=== PATIENT | male | born 1945 | race Asian ===

== ENCOUNTER 2018-08-18 20:24 | Emergency (ER) | payer MEDICARE ==
[~2018-08-18] VITALS: Ht 182.9 cm; Wt 79.5 kg
[~2018-08-18 20:24] MED LIST: BIMA2.5D4 OP; [UNRECOGNIZED DRUG - OTHER]
[2018-08-18 20:28] VITALS: Ht 182.9 cm; Wt 79.5 kg
[2018-08-18] MEDS ORDERED: LATA2.5D2 BOTH EYES (20:59)
[2018-08-18] MEDS ORDERED: LOSA50TA14 PO (20:59)
[2018-08-18] MEDS ORDERED: ATOR10TA65 PO (20:59)
[2018-08-18] MEDS ORDERED: TIMO5DRO30 BOTH EYES (21:00)
--- NOTE | 2018-08-18 23:27 | ERD ---
ER Documentation Chief Complaint Chief Complaint consumed 2 bottles of wine, family concerned. no trauma. HPI 73-year-old gentleman who presents to the emergency room via EMS for alcohol intoxication. Initial history was that the family was concerned that the patient was intoxicated. He admits to drinking 2 bottles of wine. He states that he occasionally falls when he was drunk. He initially denied that he fell down or hit his head. He denies any injury and no complaints currently. He denies any hematemesis or melena and denies suicidal or homicidal intent. ROS All systems reviewed and are negative except as per history of present illness. Medications Home Meds Reported Medications Timolol Maleate* (Timoptic*) 0.5%-5ml Opht, 1 DROP BOTH EYES BID, #1 EA 08/18/18 Latanoprost (Latanoprost) 2.5 Ml Drops, 1 DROP BOTH EYES QHS, #1 BOTTLE 08/18/18 Atorvastatin Calcium (Atorvastatin Calcium) 10 Mg Tablet, 10 MG PO QHS, #30 TAB 08/18/18 Losartan Potassium* (Losartan Potassium*) 50 Mg Tablet, 50 MG PO DAILY, TAB 08/18/18 Discontinued Reported Medications [[place] Drop] No Conflict Check 09/18/12 Bimatoprost (Lumigan) 2.5 Ml Drops, 2.5 ML OP DAILY 09/18/12 Allergies Allergies: Coded Allergies: No Known Drug Allergies (Verified Allergy, Unknown, 08/18/18) PMhx/Soc History of Surgery: Yes (R HERNIA REPAIR) Anesthesia Reaction: No Hx Neurological Disorder: No Hx Respiratory Disorders: No Hx Cardiac Disorders: No Hx Psychiatric Problems: No Hx Miscellaneous Medical Probl: No Hx Alcohol Use: Yes (wine) Hx Substance Use: No Hx Tobacco Use: No (QUIT 15-20 YEARS AGO) Smoking Status: Former smoker FmHx Family History: No diabetes Physical Exam Vitals Vital Signs Date Temp Pulse Resp B/P (MAP) Pulse Ox O2 O2 Flow FiO2 Time Delivery Rate 08/18/18 63 16 114/73 96 Room Air 22:25 (87) 08/18/18 98.7 69 18 137/88 97 20:28 (104) Physical Exam General: Smells of alcohol, intoxicated but appropriate and conversive Head: Normocephalic, atraumatic. Eyes: Pupils equally reactive, EOM intact ENT: Moist mucous membranes Neck: Supple, no lymphadenopathy Respiratory: Lungs clear bilaterally, no distress Cardiovascular: RRR, no murmurs, rubs, or gallops Abdominal: Soft, non-tender, non-distended, no peritoneal signs : Deferred MSK: No edema, no unilateral swelling, 5/5 strength Neurologic: Alert and oriented though slightly intoxicated, moving all extremities, normal speech, no focal weakness, no cerebellar signs Skin: No rash, no evidence of trauma Psych: Normal mood Result Diagram: 08/18/18222008/18/182220 Results 24 hrs Laboratory Tests Test 08/18/18 21:35 08/18/18 22:21 Ethyl Alcohol Level 195.0 mg/dl White Blood Count 8.6 10^3/ul Red Blood Count 4.40 10^6/ul Hemoglobin 14.3 g/dl Hematocrit 42.4 % Mean Corpuscular Volume 96.4 fl Mean Corpuscular Hemoglobin 32.5 pg Mean Corpuscular Hemoglobin Concent 33.7 g/dl Red Cell Distribution Width 12.2 % Platelet Count 192 10^3/UL Mean Platelet Volume 9.2 fl Immature Granulocytes % 0.300 % Neutrophils % 66.8 % Lymphocytes % 21.6 % Monocytes % 8.4 % Eosinophils % 2.1 % Basophils % 0.8 % Nucleated Red Blood Cells % 0.0 /100WBC Immature Granulocytes # 0.030 10^3/ul Neutrophils # 5.8 10^3/ul Lymphocytes # 1.9 10^3/ul Monocytes # 0.7 10^3/ul Eosinophils # 0.2 10^3/ul Basophils # 0.1 10^3/ul Nucleated Red Blood Cells # 0.0 10^3/ul Prothrombin Time 12.7 Sec Prothrombin Time Ratio 1.0 INR International Normalized Ratio 0.94 Activated Partial Thromboplast Time 26.1 Sec Sodium Level 139 mmol/L Potassium Level 4.1 mmol/L Chloride Level 100 mmol/L Carbon Dioxide Level 29 mmol/L Anion Gap 10 Blood Urea Nitrogen 11 mg/dl Creatinine 0.75 mg/dl Est Glomerular Filtrat Rate mL/min mL/min Glucose Level 93 mg/dl Calcium Level 8.8 mg/dl Total Bilirubin 0.6 mg/dl Direct Bilirubin 0.00 mg/dl Indirect Bilirubin 0.6 mg/dl Aspartate Amino Transf (AST/SGOT) 44 IU/L Alanine Aminotransferase (ALT/SGPT) 24 IU/L Alkaline Phosphatase 52 IU/L Total Protein 8.1 g/dl Albumin 4.4 g/dl Globulin 3.70 g/dl Albumin/Globulin Ratio 1.18 Procedures/MDM EKG, MONITORS, & DIAGNOSTIC IMAGING: CT brain: IMPRESSION: No acute intracranial findings. Small old left cerebellar infarct. Background chronic microvascular ischemic changes are also present. RPTAT:HCLE LAB INTERPRETATION: I reviewed the laboratory testing and it shows elevated alcohol otherwise no acute process MEDICAL DECISION MAKING: The patient's initial presentation was very consistent with alcohol intoxication. However later the patient's daughter had arrived. She states that she was concerned for possible stroke because the patient was slurring his words on the phone. We had a prolonged conversation and discussed the fact that the patient admitted to drinking 2 bottles of wine. His clinical exam is very consistent with alcohol intoxication. I do not believe the patient's presentation is consistent with acute stroke syndrome. We discussed multiple rates of workup and agreed upon a alcohol level and if this match the patient's level intoxication then no further workup would be indicated. However after the patient's daughter had further conversation with her sister who is a nurse they both wanted laboratory testing and diagnostic imaging to rule out stroke. I advised him that this cannot completely rule out stroke and that his clinical exam and presentation is not consistent with acute stroke syndrome. However they would like lab testing and CT imaging which would be appropriate. Patient later admitted to possibly falling and despite the fact that there is no evidence of head trauma CT imaging would be appropriate ER COURSE: * Patient seems to be clearing and sobriety is improving * The patient has since been steady on his feet and ambulatory. Laboratory testing and diagnostic imaging is unrevealing other than a small old cerebe llar infarct. The patient has been examined twice during which time his exam is been consistent with alcohol intoxication. The patient has been improving and is more sober at this point. The patient has no clinical signs or symptoms of cerebellar infarct or acute stroke syndrome. * I had a further conversation with the patient's daughters. Their main concern was that the patient was not having a stroke. I explained that given his clinical exam, laboratory testing consistent with elevated alcohol level and nonfocal neurologic examination his clinical exam and presentation is very consistent with acute alcohol intoxication. I explained to them that I cannot completely rule out stroke process without MRI imaging and neurology consultation however he does not have any focal findings that would be suggestive of this process. The patient does live alone at this time but is usually ambulatory and able to care for himself and feeding himself. The patient is ambulatory at this time and can be watched by his daughter at home today. I did discuss the potential for inpatient hospitalization and discussed with that might look like but also explained that his process is most consistent with alcohol intoxication. At this point the patient's family and him have decided that discharge would be most appropriate. We did discuss return precautions including recurrent falls, signs and symptoms of acute stroke. Outpatient follow-up with primary care physician and neurologist might be appropriate. The patient was informed that he may have a drinking problem and may need to seek solution for that as well. CONSULTATION: None DISPOSITION PLAN: The patient does not have an identifiable emergent medical condition that warrants inpatient hospitalization at this time. The patient is deemed safe for discharge with outpatient follow-up. We discussed follow up with the patient's primary care doctor within 24 to 48 hours as needed. We also discussed return to the emergency room for worsening symptoms or worsening condition. Outpatient referral: Primary care physician Departure Diagnosis: Primary Impression: Alcohol intoxication Complication of substance-induced condition: with unspecified complication Qualified Codes: F10.929 - Alcohol use, unspecified with intoxication, unspecified Condition: MARGRET Lizama MD Aug 18, 2018 23:27
[2018-08-19 00:30] VITALS: BP 92/59; PULSE 77; RESP 12
== END 2018-08-19 00:30 | disposition home or self-care (01) ==
LOC: E/R 20:24
DX: F10.929 Alcohol use, unspecified with intoxication, unspecified (principal); R93.0 Abnormal findings on diagnostic imaging of skull and head, not elsewhere classified; Z87.891 Personal history of nicotine dependence
CPT/HCPCS: 70450; 80053; 80307; 85025; 85610; 85730